=== PATIENT | female | born 1945 | race Caucasian/White ===

== ENCOUNTER 2017-02-13 08:24 | Emergency (ER) | payer OTHER, MEDICAID ==
[~2017-02-13] VITALS: Ht 172.7 cm; Wt 64.0 kg
[2017-02-13 08:31] VITALS: BP 196/104; PULSE 74; RESP 18; TEMP 98.2; O2SAT 99
[2017-02-13] MEDS ORDERED: INSU1INJ14 SQ (08:45)
[2017-02-13] MEDS ORDERED: CARV12.52 PO (08:45)
[2017-02-13] MEDS ORDERED: NOVOLOGP2 SQ (08:45)
[2017-02-13] MEDS ORDERED: SYNT112T PO (08:45)
[2017-02-13] MEDS ORDERED: APIX5TAB PO (08:45)
[2017-02-13] MEDS ORDERED: LISI-515 PO (08:45)
[2017-02-13 08:48] VITALS: RESP 16; O2SAT 99
[2017-02-13 09:16] LABS: AUTOMATED NEUTROPHIL # 4.5 TH/MM3 (1.8-7.7); BASOPHIL # 0.1 TH/MM3 (0-0.2); BASOPHIL % 1.2 % (0.0-2.0); EOSINOPHIL # 0.3 TH/MM3 (0-0.4); EOSINOPHIL % 4.4 % (0.0-4.0); HEMATOCRIT 32.5 % (35.0-46.0); HEMO FLAGS DIFF FINAL; LYMPH % 17.1 % (9.0-44.0); LYMPHOCYTE # 1.2 TH/MM3 (1.0-4.8); MEAN CELL VOLUME 84.5 FL (80.0-100.0); MEAN CORPUSCULAR HEMOGLOBIN 27.7 PG (27.0-34.0); MEAN CORPUSCULAR HGB CONC 32.8 % (32.0-36.0); MONO % 10.5 % (0.0-8.0); NEUT % 66.8 % (16.0-70.0); PLATELET COUNT 314 TH/MM3 (150-450); RED BLOOD COUNT 3.85 MIL/MM3 (4.00-5.30); WHITE BLOOD COUNT 6.7 TH/MM3 (4.0-11.0)
--- NOTE | 2017-02-13 09:18 | PD ---
HPI Chief Complaint: Hypertension Time Seen by Provider: 08:38 Travel History International Travel<30 days: No Contact w/Intl Traveler<30days: No Traveled to known affect area: No History of Present Illness HPI 71-year-old female states she took her blood pressure this morning and it was significantly elevated in the 200s over 120s. She took an extra of her lisinopril in addition to her regular dose of lisinopril and carvedilol. She denies any symptoms including chest pain, weakness, numbness or other concurrent complaints. Quality is elevated. She states she took her pressure because she had a recent ablation on the so she monitors her vitals. She states she has an appointment with Dr. Apple tomorrow. She states Dr. Crandall is her primary care physician. PFSH Past Medical History Hx Anticoagulant Therapy: Yes (Eliquis) Cardiovascular Problems: Yes (A.fib, ablation, HTN) Cerebrovascular Accident: Yes (TIA) Diabetes: Yes (Type 2, insulin dept) Patient Takes Glucophage: No Diminished Hearing: No Tetanus Vaccination: > 5 Years Influenza Vaccination: No Menopausal: Yes Past Surgical History Tonsillectomy: Yes Social History Alcohol Use: Yes (ocassionally) Tobacco Use: No Substance Use: No Allergies-Medications (Allergen,Severity, Reaction): Coded Allergies: Norvasc (Verified Adverse Reaction, Unknown, Hypertension, 02/13/17) Reported Meds & Prescriptions Reported Meds & Active Scripts Active Reported Tresiba Flextouch Pen Inj (Insulin Degludec Inj) 300 unit/3 ML Pen 16 Units SQ HS Novolog Inj (Insulin Aspart) 1,000 Unit/10 Ml Vial 8 Units SQ ACHS Max dose at bedtime:( )units; sugars less than 70,(0)units; sugars 150-199,(1) unit; sugars 200-249,(3) units; sugars 250-299,(5) units; sugars 300-349,(7) units; sugars greater than 349,(9) units Eliquis (Apixaban) 5 Mg Tab 5 Mg PO BID Synthroid (Levothyroxine Sodium) 112 Mcg Tab 112 Mcg PO DAILY Carvedilol 12.5 Mg Tab 12.5 Mg PO BID Lisinopril 20 Mg Tab 20 Mg PO DAILY Review of Systems Except as stated in HPI: all other systems reviewed are Neg Physical Exam Narrative GENERAL: Well-nourished, well-developed patient. Well-appearing SKIN: Warm and dry. HEAD: Normocephalic and atraumatic. EYES: No injection or drainage. ENT: No nasal drainage noted. NECK: Supple, trachea midline. CARDIOVASCULAR: Regular rate and rhythm RESPIRATORY: Breath sounds equal bilaterally. No accessory muscle use. GASTROINTESTINAL: Abdomen soft, non-tender, nondistended. EXTREMITIES: No edema. NEUROLOGICAL: Awake and alert. Motor and sensory grossly within normal limits. Normal speech. Equal grasp bilaterally, 5 out of 5 in all 4 extremities Data Data Last Documented VS Vital Signs Date Time Temp Pulse Resp B/P Pulse Ox O2 Delivery O2 Flow Rate FiO2 02/13/17 10:43 68 18 182/89 98 Room Air 02/13/17 08:31 98.2 Orders Basic Metabolic Panel (Bmp) (02/13/17 08:45) Complete Blood Count With Diff (02/13/17 08:45) Magnesium (Mg) (02/13/17 08:45) Ecg Monitoring (02/13/17 08:45) Iv Access Insert/Monitor (02/13/17 08:45) Oximetry (02/13/17 08:45) Labs Laboratory Tests Test 02/13/17 08:00 White Blood Count 6.7 TH/MM3 Red Blood Count 3.85 MIL/MM3 Hemoglobin 10.7 GM/DL Hematocrit 32.5 % Mean Corpuscular Volume 84.5 FL Mean Corpuscular Hemoglobin 27.7 PG Mean Corpuscular Hemoglobin 32.8 % Concent Red Cell Distribution Width 15.0 % Platelet Count 314 TH/MM3 Mean Platelet Volume 7.7 FL Neutrophils (%) (Auto) 66.8 % Lymphocytes (%) (Auto) 17.1 % Monocytes (%) (Auto) 10.5 % Eosinophils (%) (Auto) 4.4 % Basophils (%) (Auto) 1.2 % Neutrophils # (Auto) 4.5 TH/MM3 Lymphocytes # (Auto) 1.2 TH/MM3 Monocytes # (Auto) 0.7 TH/MM3 Eosinophils # (Auto) 0.3 TH/MM3 Basophils # (Auto) 0.1 TH/MM3 CBC Comment DIFF FINAL Differential Comment Sodium Level 139 MEQ/L Potassium Level 4.1 MEQ/L Chloride Level 102 MEQ/L Carbon Dioxide Level 28.9 MEQ/L Anion Gap 8 MEQ/L Blood Urea Nitrogen 14 MG/DL Creatinine 0.60 MG/DL Estimat Glomerular Filtration 98 ML/MIN Rate Random Glucose 118 MG/DL Calcium Level 9.1 MG/DL Magnesium Level 1.9 MG/DL MDM Medical Decision Making Medical Screen Exam Complete: Yes Emergency Medical Condition: Yes Medical Record Reviewed: Yes (past history confirmed) Interpretation(s) CBC & BMP Diagram 02/13/17 08:00 Differential Diagnosis Hypertensive urgency, electrolyte abnormality, renal failure Narrative Course Patient with significantly elevated blood pressure without symptoms. Has not had recent blood work. Will check blood work and monitor. Patient's blood pressure is currently 205/95 and given asymptomatic will hold treatment 182/89 on recheck on own will discuss with her alterations manager that she will see tommorrow patient wanting to go after waiting 30 minutes for call back and will just discuss with him tommorrow, Patient denies any new complaints and states that they are feeling better. Patient happy with care, all questions answered. Patient knows that follow up is incumbent on them and to return to the emergency room immediately if new or worsening symptoms develop. Patient given strict return precautions, vitals reviewed and are normal, agrees to further workup as an outpatient. Physician Communication Physician Communication dr apple called back after patient left and states ok when given report Diagnosis Primary Impression: Elevated blood lead level Patient Instructions: General Instructions Additional Instructions: keep blood pressure log, return as needed, follow with alterations manager tommorrow as scheduled Med/Other Pt SpecificInfo: No Change to Meds Disposition: 01 DISCHARGE HOME Condition: Stable Cierra Tanner MD February 13, 2017 09:18
[2017-02-13 09:28] LABS: BICARBONATE 28.9 MEQ/L (21.0-32.0); MAGNESIUM 1.9 MG/DL (1.5-2.5); POTASSIUM 4.1 MEQ/L (3.5-5.1)
[2017-02-13 10:43] VITALS: BP 182/89; PULSE 68; RESP 18; O2SAT 98
== END 2017-02-13 11:22 | disposition home or self-care (01) ==
LOC: NEPC 08:24
DX: R78.71 Abnormal lead level in blood (principal); I10 Essential (primary) hypertension; I48.91 Unspecified atrial fibrillation; E11.9 Type 2 diabetes mellitus without complications; Z79.01 Long term (current) use of anticoagulants; Z79.4 Long term (current) use of insulin; Z79.899 Other long term (current) drug therapy
CPT/HCPCS: 80048; 83735; 85025; 99283